=== PATIENT | male | born 1980 | race Caucasian/White ===

== ENCOUNTER 2017-06-19 18:42 | Emergency (ER) | payer BC, OTHER ==
[2017-06-19 18:52] VITALS: BP 125/80
[2017-06-19] MEDS ORDERED: Ondansetron 4 MG/2 ML SDV IVPUSH ONE (19:30)
[2017-06-19] MEDS ORDERED: Sodium Chloride 0.9% 1,000 ML IV ONE (19:47)
--- NOTE | 2017-06-19 20:40 | EDM.PDOC ---
ED HPI GENERAL MEDICAL PROBLEM - General Chief Complaint: Respiratory Problem Stated Complaint: Shortness of breath Time Seen by Provider: 06/19/17 19:30 Source of Information: Reports: Patient, RN Notes Reviewed History Limitations: Reports: No Limitations - History of Present Illness INITIAL COMMENTS - FREE TEXT/NARRATIVE: 36 year old male presents to the ED with complaints of shortness of breath, nausea, feeling lightheaded, and "tingling" all over. He reports feeling better after he vomited. He was diaphoretic and tachypnic on arrival but this resolved prior to my initial evaluation. He was out golfing when the symptoms started. He reports drinking approximately 6 beers and a few shots of alcohol today. It' s very warm today, approximately 85 degrees, and he did not drink much water today. He has no medical history. No chest pain, lower extremity edema, history of clots, abdominal pain. - Related Data Allergies Allergy/AdvReac Type Severity Reaction Status Date / Time No Known Allergies Allergy Verified 06/19/17 18:56 Home Meds: Home Meds . [No Known Home Meds] 06/19/17 [History] Past Medical History - Past Health History Medical/Surgical History: Denies Medical/Surgical History Social & Family History - Family History Family Medical History: Noncontributory - Tobacco Use Smoking Status *Q: Never Smoker Second Hand Smoke Exposure: No - Caffeine Use Caffeine Use: Reports: None - Recreational Drug Use Recreational Drug Use: No ED ROS GENERAL - Review of Systems Review Of Systems: See Below Constitutional: Reports: Diaphoresis Respiratory: Reports: Shortness of Breath Cardiovascular: Reports: Lightheadedness. Denies: Chest Pain, Edema GI/Abdominal: Reports: Nausea, Vomiting. Denies: Abdominal Pain, Diarrhea Skin: Reports: Diaphoresis Neurological: Reports: Tingling. Denies: Confusion, Dizziness, Headache, Numbness, Trouble Speaking, Difficulty Walking ED EXAM, GENERAL - Physical Exam Exam: See Below Exam Limited By: No Limitations General Appearance: Alert, WD/WN, No Apparent Distress Eye Exam: Bilateral Eye: EOMI, PERRL Respiratory/Chest: No Respiratory Distress, Lungs Clear, Normal Breath Sounds Cardiovascular: Normal Peripheral Pulses, Regular Rate, Rhythm, No Murmur GI/Abdominal: Normal Bowel Sounds, Soft, Non-Tender Neurological: Alert, Oriented, CN II-XII Intact, Normal Cognition, Normal Gait, No Motor/Sensory Deficits, Other (cerebellar testing intact) Skin Exam: Warm, Dry, Intact Course - Vital Signs Last Recorded V/S: Last Vital Signs Temp 95.9 F 06/19/17 18:47 Pulse 69 06/19/17 18:47 Resp 22 H 06/19/17 18:47 BP 125/80 06/19/17 18:47 Pulse Ox 100 06/19/17 18:47 - Orders/Labs/Meds Labs: Laboratory Tests 06/19/17 06/19/17 Range/Units 18:38 18:38 WBC 6.81 (4.23-9.07) K/mm3 RBC 5.37 (4.63-6.08) M/mm3 Hgb 16.3 (13.7-17.5) gm/L Hct 46.3 (40.1-51.0) % MCV 86.2 (79.0-92.2) fl MCH 30.4 (25.7-32.2) pg MCHC 35.2 (32.2-35.5) g/dl RDW Std Deviation 41.7 (35.1-43.9) fL Plt Count 291 (163-337) K/mm3 MPV 10.2 (9.4-12.3) fl Neut % (Auto) 56.4 (34.0-67.9) % Lymph % (Auto) 35.5 (21.8-53.1) % [place] % (Auto) 6.8 (5.3-12.2) % Eos % (Auto) 0.7 L (0.8-7.0) Baso % (Auto) 0.3 (0.1-1.2) % Neut # (Auto) 3.84 (1.78-5.38) K/mm3 Lymph # (Auto) 2.42 (1.32-3.57) K/mm3 [place] # (Auto) 0.46 (0.30-0.82) K/mm3 Eos # (Auto) 0.05 (0.04-0.54) K/mm3 Baso # (Auto) 0.02 (0.01-0.08) K/mm3 Sodium 143 (136-145) mEq/L Potassium 4.2 (3.5-5.1) mEq/L Chloride 106 (98-107) mEq/L Carbon Dioxide 21 (21-32) mEq/L Anion Gap 20.2 H (5-15) BUN 15 (7-18) mg/dL Creatinine 1.4 H (0.7-1.3) mg/dL Est Cr Clr Drug Dosing 83.23 mL/min Estimated GFR (MDRD) 58 (>60) mL/min BUN/Creatinine Ratio 10.7 L (14-18) Glucose 137 H (74-106) mg/dL Calcium 9.9 (8.5-10.1) mg/dL Total Bilirubin 1.4 H (0.2-1.0) mg/dL AST 29 (15-37) U/L ALT 38 (16-63) U/L Alkaline Phosphatase 40 L (46-116) U/L Total Protein 8.3 H (6.4-8.2) g/dl Albumin 4.9 (3.4-5.0) g/dl Globulin 3.4 gm/dL Albumin/Globulin Ratio 1.4 (1-2) Meds: Medications Discontinued Medications Generic Name Dose Route Start Last Admin Trade Name Freq PRN Reason Stop Dose Admin Sodium Chloride 1,000 mls @ 999 mls/hr 06/19/17 19:47 06/19/17 19:51 Normal Saline IV 06/19/17 20:47 999 mls/hr ONETIME ONE Administration Ondansetron HCl 4 mg 06/19/17 19:30 06/19/17 19:33 Zofran IVPUSH 06/19/17 19:31 4 mg ONETIME ONE Administration - Re-Assessments/Exams Free Text/Narrative Re-Assessment/Exam: CBC is normal. CMP reveals anion gap of 20, Creatinine 1.4, BUN 15, and bilirubin 1.4. Diagnosis is heat exhaustion and dehydration. Treated with IV fluids and Zofran. Patient significantly improved and had resolution of symptoms. Departure - Departure Time of Disposition: 20:39 Disposition: Home, Self-Care 01 Condition: Good Clinical Impression: Dehydration Heat exhaustion Qualifiers: Encounter type: initial encounter Qualified Code(s): T67.5XXA - Heat exhaustion , unspecified, initial encounter - Discharge Information Instructions: Dehydration, Adult, [id number] Referrals: PCP,None [Ordering Only Provider] - Forms: ED Department Discharge Additional Instructions: Drink plenty of fluids No alcohol for at least 3 days Return to ER with any new or worsening symptoms No driving today
== END 2017-06-19 20:47 | disposition home or self-care (01) ==
LOC: JD.ED 18:42
DX: T67.5XXA Heat exhaustion, unspecified, initial encounter (principal); E86.0 Dehydration; X30.XXXA Exposure to excessive natural heat, initial encounter
CPT/HCPCS: 36415; 80053; 85025; 96361; 96374; 99285; J2405; J7040; 99284